=== PATIENT | male | born 1980 | race Caucasian/White ===

== ENCOUNTER 2017-05-29 06:21 | Emergency (ER) | payer OTHER ==
[~2017-05-29] VITALS: Ht 167.6 cm; Wt 69.6 kg
[~2017-05-29 06:21] MED LIST: FLEXERIL10 MG PO; MOTRIN600 MG PO; MOTRIN800 MG PO; NOHOMEMEDS; SEROQUEL100 MG PO; SEROQUEL50 MG PO
[2017-05-29 06:52] LABS: HEMATOCRIT 47.9 % (38.0-50.0); HEMOGLOBIN 16.7 G/DL (12.5-16.6); MCH 31.6 PG (29.0-34.0); MCHC 34.9 G/DL (30.0-36.0); MCV 90.7 FL (86-99); PLATELET COUNT 364 K/uL (156-360); RBC DIS.WIDTH-CV 12.8 % (11.8-14.6); RBC DIS.WIDTH-SD 42.7 % (39-53); RED BLOOD COUNT 5.28 M/uL (4.00-5.50)
[2017-05-29 07:01] LABS: APPEARANCE CLEAR ((CLEAR)); BILIRUBIN NEGATIVE; BLOOD NEGATIVE; COLOR YELLOW ((YELLOW)); GLUCOSE (STRIP) NEGATIVE; KETONES NEGATIVE; LEUKOCYTES NEGATIVE; NITRITE NEGATIVE; PROTEIN (STRIP) 30; SPECIFIC GRAVITY 1.024 (1.000-1.030); UCUL ADDED? NO; UROBILINOGEN 0.2 MG/DL (0.2-1.0)
[2017-05-29 07:22] LABS: ALKALINE PHOSPHATASE 73 IU/L (3-129); ALT (GPT) 55 IU/L (3-49); AST (GOT) 35 IU/L (2-34); CHLORIDE 100 MEQ/L (99-109); CREATININE 0.9 MG/DL (0.6-1.3); GFR ESTIMATE (CALCULATED) > 59 mL/min/ (58.99-99999); GLUCOSE 138 mg/dL (70-99); LIPASE 17 U/L (1.0-51.0); SODIUM 138 MEQ/L (136-147); TOTAL BILIRUBIN 0.4 MG/DL (0.0-1.0); TOTAL PROTEIN 7.2 G/DL (6.4-8.3); UREA NITROGEN (BUN) 10 mg/dL (9-23)
[2017-05-29] MEDS ORDERED: SUBOXONE 8 MG-1 EAC2 SL (09:12)
[2017-05-29] MEDS ORDERED: ZOFRAN ODT4 MG PO (09:40)
[2017-05-29] MEDS ORDERED: LEVSIN-SL0.125 MG SL (09:40)
[2017-05-29 10:26] VITALS: BP 97/59
== END 2017-05-29 10:28 | disposition home or self-care (01) ==
LOC: EME 06:21
DX: K52.9 Noninfective gastroenteritis and colitis, unspecified (principal); F17.200 Nicotine dependence, unspecified, uncomplicated
CPT/HCPCS: 74177; 80053; 81003; 83690; 85027; 99281; 99285; J1885; J2405; J7030